=== PATIENT | female | born 1985 | race Two or more races ===

== ENCOUNTER 2016-11-04 21:38 | Emergency (ER) | payer MEDICAID ==
[~2016-11-04] VITALS: Ht 157.5 cm; Wt 73.0 kg
[2016-11-05 03:17] VITALS: BP 121/69
[2016-11-05] MEDS ORDERED: SODIUM CHLORIDE 0.9% 1,000 ML IV ONE (03:19)
== END 2016-11-05 05:07 | disposition home or self-care (01) ==
LOC: ER 21:49
DX: J02.8 Acute pharyngitis due to other specified organisms (principal)
CPT/HCPCS: 87070; 87430; 96360; 99284; J7030; Z7610

== ENCOUNTER 2025-05-12 18:36 | Emergency (ER) | payer MEDICAID ==
[~2025-05-12] VITALS: Ht 162.6 cm; Wt 77.0 kg
[2025-05-12 18:43] VITALS: TEMP 98.6; O2SAT 100
[2025-05-12] MEDS: IBUPROFEN 600MG TABLET PO ONE (20:31)
[2025-05-12] MEDS ORDERED: IBUP-1455 MT (21:08)
[2025-05-12] MEDS: HYDROCODONE/ACETAMINOPHEN 5/325MG TABLET PO ONE (21:26)
[2025-05-12 21:41] VITALS: BP 125/78; PULSE 92; RESP 15; O2SAT 100
== END 2025-05-12 21:44 | disposition home or self-care (01) ==
LOC: ER 18:36
DX: S52.131A Displaced fracture of neck of right radius, initial encounter for closed fracture (principal); Z98.890 Other specified postprocedural states; X58.XXXA Exposure to other specified factors, initial encounter; Y93.89 Activity, other specified; Y92.89 Other specified places as the place of occurrence of the external cause; Y99.8 Other external cause status
CPT/HCPCS: 29105; 73030; 99283; L3670